=== PATIENT | female | born 1965 | race Two or more races ===

== ENCOUNTER 2016-10-11 22:02 | Observation (INO) | payer SELFPAY ==
[~2016-10-11] VITALS: Ht 165.1 cm; Wt 106.3 kg
[2016-10-11 22:32] LABS: BASO # 0.1 x10^3/uL (0.0-0.2); BASO % 1 % (0-3); EOS % 2 % (0-3); HEMATOCRIT 36.6 % (36.0-47.0); HEMOGLOBIN 12.4 g/dL (12.0-15.5); LYMPH # 4.4 x10^3/uL (1.0-4.8); LYMPH % 43 % (24-48); MEAN CORPUSCULAR HEMOGLOBIN 31 pg (25-35); MEAN CORPUSCULAR HGB CONC 34 g/dL (31-37); MEAN CORPUSCULAR VOLUME 92 fL (79-100); MONO % 7 % (0-9); NEUT % 47 % (31-73); PLATELET COUNT 258 x10^3/uL (140-400); RED BLOOD COUNT 3.97 x10^6/uL (3.50-5.40); RED CELL DISTRIBUTION WIDTH 12.9 % (11.5-14.5); WHITE BLOOD COUNT 10.1 x10^3/uL (4.0-11.0)
[2016-10-11 22:41] LABS: PROTHROMBIN TIME PATIENT 12.1 SEC (11.7-14.0)
[2016-10-11 22:43] LABS: CALCIUM 8.9 mg/dL (8.5-10.1); CREATININE 0.9 mg/dL (0.6-1.0); GFR 66.3; POTASSIUM 3.5 mmol/L (3.5-5.1)
[2016-10-11 22:49] LABS: ALBUMIN 3.5 g/dL (3.4-5.0); DIRECT BILIRUBIN 0.1 mg/dL (0.0-0.2); TOTAL BILIRUBIN 0.2 mg/dL (0.2-1.0); TOTAL PROTEIN 7.5 g/dL (6.4-8.2)
--- NOTE | 2016-10-11 23:21 | RAD ---
EXAM: CT head without contrast HISTORY: numbness in face and arms COMPARISON: None. TECHNIQUE: Computed tomographic images of the head were obtained without contrast. PQRS compliance statement: One or more of the following individualized dose reduction techniques were utilized for this examination: 1. Automated exposure control 2. Adjustment of the mA and/or kV according to patient size 3. Use of iterative reconstruction technique FINDINGS: There is no acute intracranial process identified. Specifically, there are no intracranial blood products, extra-axial fluid collections, mass effect or midline shift. Ventricles and basilar cisterns are maintained. The visualized portions of the orbits, paranasal sinuses and mastoid air cells are unremarkable. No suspicious calvarial lesion is seen. IMPRESSION: No acute intracranial findings. Electronically signed by: Mallory Abdalla MD (10/11/2016 11:17 PM)
[2016-10-11 23:44] LABS: BILIRUBIN,URINE NEGATIVE (NEG); GLUCOSE,URINE NEGATIVE (NEG); NITRITE,URINE NEGATIVE (NEG); PROTEIN,URINE NEGATIVE (NEG-TRACE); UROBILINOGEN,URINE 0.2 mg/dL (0.2 mg/dL)
[2016-10-11 23:49] LABS: BACTERIA,URINE FEW /HPF (0-FEW); RBC,URINE 0 /HPF (0-2); SQUAMOUS EPITHELIAL CELL,UR MOD /LPF
[2016-10-11 23:50] LABS: BARBITURATES NEG (NEG); BENZODIAZEPINES NEG (NEG); CANNABINOIDS NEG (NEG); COCAINE NEG (NEG); METHADONE NEG (NEG); OPIATES NEG (NEG); PHENCYCLIDINE NEG (NEG)
--- NOTE | 2016-10-12 00:14 | PHYS DOC ---
Past Medical History Past Medical History: No Pertinent History Past Surgical History: No Surgical History Alcohol Use: None Drug Use: None Adult General Chief Complaint Chief Complaint: NEURO SYMPTOMS/DEFICITS HPI HPI 51-year-old female presenting to the emergency department Today with left facial numbness and left lower extremity weakness. She reports last known normal on Tuesday which is approximately 3 days from today. She has mild weakness in her left lower leg and reports sensation changes on the left side of her body. She denies slurred speech or confusion. Location brain duration constant. No alleviating or exacerbating factors present. She denies headache or trauma. She denies back pain. She denies fevers chills. She denies vision changes. Review of systems is negative for chest pain shortness of breath abdominal pain nausea or vomiting. All other review of systems is negative unless otherwise noted in history of present illness. ED course: 51-year-old female presenting to the emergency department today with left-sided numbness and weakness. Last known normal [address] and blood work obtained. Workup unremarkable. NIH stroke scale calculated to be 2. 1 point for left lower leg weakness and 1 point for sensory changes. The patient was then admitted for stroke workup, further evaluation workup and care. MRI ordered along with neurology consultation. Patient was outside of the TPA window. Review of Systems Review of Systems SEE ABOVE. Allergies Allergies Allergies Coded Allergies Type Severity Reaction Last Updated Verified No Known Drug Allergies 10/11/16 No Physical Exam Physical Exam Constitutional: Well developed, well nourished, no acute distress, non-toxic appearance. [] HENT: Normocephalic, atraumatic, bilateral external ears normal, oropharynx moist, no oral exudates, nose normal. [] Eyes: PERRLA, EOMI, conjunctiva normal, no discharge. [] Neck: Normal range of motion, no tenderness, supple, no stridor. [] Cardiovascular:Heart rate regular rhythm, no murmur [] Lungs & Thorax: Bilateral breath sounds clear to auscultation [] Abdomen: Bowel sounds normal, soft, no tenderness, no masses, no pulsatile masses. [] Skin: Warm, dry, no erythema, no rash. [] Back: No tenderness, no CVA tenderness. [] Extremities: No tenderness, no cyanosis, no clubbing, ROM intact, no edema. [] Neurologic: Mental status: Awake oriented and alert x3 Cranial nerves: Extraocular movements intact, eyebrows melyssa bilaterally smile symmetric, uvula elevation, shoulder shrug intact, tongue protrusion normal DTRs: 2+ Sensation: Decreased sensation on the left in the face and upper and lower extremity. Strength: 4 out of 5 strength in the lower left extremity otherwise 5 out of 5 strength. Psychologic: Affect normal, judgement normal, mood normal. [] Current Patient Data Vital Signs Vital Signs Date Time Temp Pulse Resp B/P (MAP) Pulse Ox O2 Delivery O2 Flow Rate FiO2 10/11/16 22:10 98.6 68 16 132/75 (94) 98 Room Air 98.6 Lab Values Laboratory Tests Test 10/11/16 22:15 10/11/16 23:37 White Blood Count 10.1 x10^3/uL (4.0-11.0) Red Blood Count 3.97 x10^6/uL (3.50-5.40) Hemoglobin 12.4 g/dL (12.0-15.5) Hematocrit 36.6 % (36.0-47.0) Mean Corpuscular Volume 92 fL (79-100) Mean Corpuscular Hemoglobin 31 pg (25-35) Mean Corpuscular Hemoglobin Concent 34 g/dL (31-37) Red Cell Distribution Width 12.9 % (11.5-14.5) Platelet Count 258 x10^3/uL (140-400) Neutrophils (%) (Auto) 47 % (31-73) Lymphocytes (%) (Auto) 43 % (24-48) Monocytes (%) (Auto) 7 % (0-9) Eosinophils (%) (Auto) 2 % (0-3) Basophils (%) (Auto) 1 % (0-3) Neutrophils # (Auto) 4.8 x10^3uL (1.8-7.7) Lymphocytes # (Auto) 4.4 x10^3/uL (1.0-4.8) Monocytes # (Auto) 0.7 x10^3/uL (0.0-1.1) Eosinophils # (Auto) 0.2 x10^3/uL (0.0-0.7) Basophils # (Auto) 0.1 x10^3/uL (0.0-0.2) Prothrombin Time 12.1 SEC (11.7-14.0) Prothrombin Time INR 1.0 (0.8-1.1) PTT 29 SEC (24-38) Sodium Level 141 mmol/L (136-145) Potassium Level 3.5 mmol/L (3.5-5.1) Chloride Level 104 mmol/L (98-107) Carbon Dioxide Level 29 mmol/L (21-32) Anion Gap 8 (6-14) Blood Urea Nitrogen 26 mg/dL (7-20) H Creatinine 0.9 mg/dL (0.6-1.0) Estimated GFR (Cockcroft-Gault) 66.3 Glucose Level 169 mg/dL (70-99) H Calcium Level 8.9 mg/dL (8.5-10.1) Total Bilirubin 0.2 mg/dL (0.2-1.0) Direct Bilirubin 0.1 mg/dL (0.0-0.2) Aspartate Amino Transferase (AST) 23 U/L (15-37) Alanine Aminotransferase (ALT) 35 U/L (14-59) Alkaline Phosphatase 94 U/L (46-116) Total Protein 7.5 g/dL (6.4-8.2) Albumin 3.5 g/dL (3.4-5.0) Urine Collection Type Unknown Urine Color Yellow Urine Clarity Clear Urine pH 6.0 Urine Specific [place] 1.015 Urine Protein Negative mg/dL (NEG-TRACE) Urine Glucose (UA) Negative mg/dL (NEG) Urine Ketones (Stick) Negative mg/dL (NEG) Urine Blood Negative (NEG) Urine Nitrite Negative (NEG) Urine Bilirubin Negative (NEG) Urine Urobilinogen Dipstick 0.2 mg/dL (0.2 mg/dL) Urine Leukocyte Esterase Small (NEG) Urine RBC 0 /HPF (0-2) Urine WBC 5-10 /HPF (0-4) Urine Squamous Epithelial Cells Mod /LPF Urine Bacteria Few /HPF (0-FEW) Urine Opiates Screen Neg (NEG) Urine Methadone Screen Neg (NEG) Urine Barbiturates Neg (NEG) Urine Phencyclidine Screen Neg (NEG) Urine Amphetamine/Methamphetamine Neg (NEG) Urine Benzodiazepines Screen Neg (NEG) Urine Cocaine Screen Neg (NEG) Urine Cannabinoids Screen Neg (NEG) Urine Ethyl Alcohol Neg (NEG) Laboratory Tests 10/11/16 22:15 Laboratory Tests 10/11/16 22:15 EKG EKG [] Radiology/Procedures Radiology/Procedures [] Course & Med Decision Making Course & Med Decision Making Pertinent Labs and Imaging studies reviewed. (See chart for details) [] Dragon Disclaimer Dragon Disclaimer This electronic medical record was generated, in whole or in part, using a voice recognition dictation system. Departure Departure Impression: Primary Impression: Focal neurological deficit Disposition: ADMITTED INPATIENT Condition: STABLE Referrals: UNKNOWN PCP NAME (PCP) ELISSA KHALIL MD Oct 12, 2016 00:14
[2016-10-12] MEDS ORDERED: ONDANSETRON PF 4 MG/2 ML VIAL. IV PRN ×2 (00:30→12:45)
[2016-10-12] MEDS ORDERED: MORPHINE SULFATE 2 MG/ML DISP.SYRIN. IV PRN ×2 (00:30→12:45)
[2016-10-12] MEDS ORDERED: IV NORMAL SALINE 1000ML BAG 1,000 ML IV ONE (01:00)
[2016-10-12 01:10] VITALS: BP 131/76
--- NOTE | 2016-10-12 06:37 | EKG ---
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
[2016-10-12 07:00] VITALS: BP 128/74
[2016-10-12 10:30] VITALS: BP 130/80
--- NOTE | 2016-10-12 10:38 | PDOC2 ---
NEUROLOGY CONSULT Date of Admission Date of Admission DATE: 10/12/16 TIME: 10:34 Reason for Consult Reason for Consult: Stroke symptoms Referring Physician Referring Physician: Dr. Bullard PCP: Dr. Pichardo Source Source: Caregiver, Chart review, Patient History of Present Illness History of Present Illness The patient is a 51-year-old right-handed female who started noticing some less sided numbness beginning 4 days ago. Symptoms were worse yesterday so she went to the emergency department. She denies any headache, diplopia, dysphagia, dysarthria, history of stroke, seizure, or head injury. She is feeling better today. Past Medical History Cardiovascular: No pertinent hx (She denies hypertension) Endocrine: Diabetes Past Surgical History Past Surgical History: No pertinent history Family History Family History: CAD Social History Social History , works in a [employer], no tobacco or alcohol Current Medications Current Medications Current Medications Ondansetron HCl (Zofran) 4 mg PRN Q8HRS PRN IV NAUSEA/VOMITING; Start 10/12/16 at 00:30; Stop 10/13/16 at 00:29 Morphine Sulfate 2 mg PRN Q2HR PRN IV SEVERE PAIN; Start 10/12/16 at 00:30; Stop 10/13/16 at 00:29 Sodium Chloride 1,000 ml @ 100 mls/hr 1X ONCE IV Last administered on t 00:51; Start 10/12/16 at 01:00; Stop 10/12/16 at 10:59 Active Scripts Active Reported No Known Medications Prior To Admisstion (Info) Each 1 Each Allergies Allergies: Coded Allergies: No Known Drug Allergies (Unverified , 10/11/16) ROS Review of System Negative for fevers, chills, weight loss, shortness of breath, chest pain, indigestion, hematochezia, melena, dysuria. Full 14-point review systems is negative. Physical Exam Physical Examination PHYSICAL EXAMINATION: Vital signs: see above. General appearance is normal and in no acute distress. HEENT: Normocephalic and nontraumatic. Eyes, nose, ears, and throat are unremarkable. Neck is supple. No lymphadenopathy. No bruits are heard over the carotid artery. No crepitus. NEUROLOGICAL EXAMINATION: Mental Status Examination: Alert. Oriented to time, place, and person. Answers questions and follows commends. We spoke in E[place] with the assistance of her son who translates. Pupils are equal round and reactive to light and accommodation. Extraocular movements are intact. Visual field exam shows no defect on the direct confrontation. No motor or sensory deficits on the facial exam. Uvula in the midline and the soft palate elevated symmetrically. No deviation of the tongue to any direction. Gross hearing is normal. Shoulder shrug normal. Muscle tone is normal. Muscle strength is 5. Deep tendon reflexes are 2+ all around. Plantar reflex is with flexion response bilaterally. [id number] test performance is accurate. Tandem walk test is accurate. Alternative movements are accurate. Romberg test is negative. Gait is normal. Sensory exam shows no deficits. No cerebellar signs are elicited. Vitals VITALS Vital Signs Date Time Temp Pulse Resp B/P (MAP) Pulse Ox O2 Delivery O2 Flow Rate FiO2 10/12/16 10:30 97.5 65 18 130/80 (97) 98 Room Air 97.5 Labs Labs Laboratory Tests Test 10/11/16 22:15 10/11/16 23:37 10/12/16 08:05 White Blood Count 10.1 x10^3/uL (4.0-11.0) Red Blood Count 3.97 x10^6/uL (3.50-5.40) Hemoglobin 12.4 g/dL (12.0-15.5) Hematocrit 36.6 % (36.0-47.0) Mean Corpuscular Volume 92 fL (79-100) Mean Corpuscular Hemoglobin 31 pg (25-35) Mean Corpuscular Hemoglobin Concent 34 g/dL (31-37) Red Cell Distribution Width 12.9 % (11.5-14.5) Platelet Count 258 x10^3/uL (140-400) Neutrophils (%) (Auto) 47 % (31-73) Lymphocytes (%) (Auto) 43 % (24-48) Monocytes (%) (Auto) 7 % (0-9) Eosinophils (%) (Auto) 2 % (0-3) Basophils (%) (Auto) 1 % (0-3) Neutrophils # (Auto) 4.8 x10^3uL (1.8-7.7) Lymphocytes # (Auto) 4.4 x10^3/uL (1.0-4.8) Monocytes # (Auto) 0.7 x10^3/uL (0.0-1.1) Eosinophils # (Auto) 0.2 x10^3/uL (0.0-0.7) Basophils # (Auto) 0.1 x10^3/uL (0.0-0.2) Prothrombin Time 12.1 SEC (11.7-14.0) Prothromb Time International Ratio 1.0 (0.8-1.1) Activated Partial Thromboplast Time 29 SEC (24-38) Sodium Level 141 mmol/L (136-145) Potassium Level 3.5 mmol/L (3.5-5.1) Chloride Level 104 mmol/L (98-107) Carbon Dioxide Level 29 mmol/L (21-32) Anion Gap 8 (6-14) Blood Urea Nitrogen 26 mg/dL (7-20) Creatinine 0.9 mg/dL (0.6-1.0) Estimated GFR (Cockcroft-Gault) 66.3 Glucose Level 169 mg/dL (70-99) Calcium Level 8.9 mg/dL (8.5-10.1) Total Bilirubin 0.2 mg/dL (0.2-1.0) Direct Bilirubin 0.1 mg/dL (0.0-0.2) Aspartate Amino Transf (AST/SGOT) 23 U/L (15-37) Alanine Aminotransferase (ALT/SGPT) 35 U/L (14-59) Alkaline Phosphatase 94 U/L (46-116) Total Protein 7.5 g/dL (6.4-8.2) Albumin 3.5 g/dL (3.4-5.0) Urine Collection Type Unknown Urine Color Yellow Urine Clarity Clear Urine pH 6.0 Urine Specific [place] 1.015 Urine Protein Negative mg/dL (NEG-TRACE) Urine Glucose (UA) Negative mg/dL (NEG) Urine Ketones (Stick) Negative mg/dL (NEG) Urine Blood Negative (NEG) Urine Nitrite Negative (NEG) Urine Bilirubin Negative (NEG) Urine Urobilinogen Dipstick 0.2 mg/dL (0.2 mg/dL) Urine Leukocyte Esterase Small (NEG) Urine RBC 0 /HPF (0-2) Urine WBC 5-10 /HPF (0-4) Urine Squamous Epithelial Cells Mod /LPF Urine Bacteria Few /HPF (0-FEW) Urine Opiates Screen Neg (NEG) Urine Methadone Screen Neg (NEG) Urine Barbiturates Neg (NEG) Urine Phencyclidine Screen Neg (NEG) Urine Amphetamine/Methamphetamine Neg (NEG) Urine Benzodiazepines Screen Neg (NEG) Urine Cocaine Screen Neg (NEG) Urine Cannabinoids Screen Neg (NEG) Urine Ethyl Alcohol Neg (NEG) Glucose (Fingerstick) 156 mg/dL (70-99) Laboratory Tests Test 10/11/16 22:15 10/11/16 23:37 10/12/16 08:05 White Blood Count 10.1 x10^3/uL (4.0-11.0) Red Blood Count 3.97 x10^6/uL (3.50-5.40) Hemoglobin 12.4 g/dL (12.0-15.5) Hematocrit 36.6 % (36.0-47.0) Mean Corpuscular Volume 92 fL (79-100) Mean Corpuscular Hemoglobin 31 pg (25-35) Mean Corpuscular Hemoglobin Concent 34 g/dL (31-37) Red Cell Distribution Width 12.9 % (11.5-14.5) Platelet Count 258 x10^3/uL (140-400) Neutrophils (%) (Auto) 47 % (31-73) Lymphocytes (%) (Auto) 43 % (24-48) Monocytes (%) (Auto) 7 % (0-9) Eosinophils (%) (Auto) 2 % (0-3) Basophils (%) (Auto) 1 % (0-3) Neutrophils # (Auto) 4.8 x10^3uL (1.8-7.7) Lymphocytes # (Auto) 4.4 x10^3/uL (1.0-4.8) Monocytes # (Auto) 0.7 x10^3/uL (0.0-1.1) Eosinophils # (Auto) 0.2 x10^3/uL (0.0-0.7) Basophils # (Auto) 0.1 x10^3/uL (0.0-0.2) Prothrombin Time 12.1 SEC (11.7-14.0) Prothromb Time International Ratio 1.0 (0.8-1.1) Activated Partial Thromboplast Time 29 SEC (24-38) Sodium Level 141 mmol/L (136-145) Potassium Level 3.5 mmol/L (3.5-5.1) Chloride Level 104 mmol/L (98-107) Carbon Dioxide Level 29 mmol/L (21-32) Anion Gap 8 (6-14) Blood Urea Nitrogen 26 mg/dL (7-20) Creatinine 0.9 mg/dL (0.6-1.0) Estimated GFR (Cockcroft-Gault) 66.3 Glucose Level 169 mg/dL (70-99) Calcium Level 8.9 mg/dL (8.5-10.1) Total Bilirubin 0.2 mg/dL (0.2-1.0) Direct Bilirubin 0.1 mg/dL (0.0-0.2) Aspartate Amino Transf (AST/SGOT) 23 U/L (15-37) Alanine Aminotransferase (ALT/SGPT) 35 U/L (14-59) Alkaline Phosphatase 94 U/L (46-116) Total Protein 7.5 g/dL (6.4-8.2) Albumin 3.5 g/dL (3.4-5.0) Urine Collection Type Unknown Urine Color Yellow Urine Clarity Clear Urine pH 6.0 Urine Specific [place] 1.015 Urine Protein Negative mg/dL (NEG-TRACE) Urine Glucose (UA) Negative mg/dL (NEG) Urine Ketones (Stick) Negative mg/dL (NEG) Urine Blood Negative (NEG) Urine Nitrite Negative (NEG) Urine Bilirubin Negative (NEG) Urine Urobilinogen Dipstick 0.2 mg/dL (0.2 mg/dL) Urine Leukocyte Esterase Small (NEG) Urine RBC 0 /HPF (0-2) Urine WBC 5-10 /HPF (0-4) Urine Squamous Epithelial Cells Mod /LPF Urine Bacteria Few /HPF (0-FEW) Urine Opiates Screen Neg (NEG) Urine Methadone Screen Neg (NEG) Urine Barbiturates Neg (NEG) Urine Phencyclidine Screen Neg (NEG) Urine Amphetamine/Methamphetamine Neg (NEG) Urine Benzodiazepines Screen Neg (NEG) Urine Cocaine Screen Neg (NEG) Urine Cannabinoids Screen Neg (NEG) Urine Ethyl Alcohol Neg (NEG) Glucose (Fingerstick) 156 mg/dL (70-99) Images Images FINDINGS: There is no acute intracranial process identified. Specifically, there are no intracranial blood products, extra-axial fluid collections, mass effect or midline shift. Ventricles and basilar cisterns are maintained. The visualized portions of the orbits, paranasal sinuses and mastoid air cells are unremarkable. No suspicious calvarial lesion is seen. IMPRESSION: No acute intracranial findings. Assessment/Plan Assessment/Plan Impression: Stroke symptoms possibly referable to a right thalamic lacunar infarct, but examination is normal. Recommendations: MRI brain Carotid Doppler studies Echocardiogram Daily aspirin Check lipids tomorrow morning if she is still here, otherwise I told her to have her primary physician check lipids and start medication if abnormal Control diabetes Rehabilitation screening Aim for discharge later today of tests are negative She was not a candidate for tissue plasminogen activator as she presented well outside the window. Thank you for letting me help with the patient's care. BHANU BASS MD Oct 12, 2016 10:38
--- NOTE | 2016-10-12 10:45 | RAD ---
Indication: CVA. Grayscale, color-flow and duplex Doppler evaluation of bilateral carotid systems was performed. No significant plaque is identified in either carotid system. The velocities are normal bilaterally. No velocity elevation or stenosis is identified. Both vertebral arteries show antegrade flow. Peak CCA velocity on the right is 71 cm/s and on the left 76 cm/s. Peak ICA velocity on the right is 59 cm/s and on the left 83 cm/s. The ICA to CCA ratio on the right is 0.8 and left 1.1. Impression: No evidence of a hemodynamically significant stenosis.
--- NOTE | 2016-10-12 10:47 | RAD ---
MRI of the brain without contrast 10/12/2016 Clinical History: Left-sided numbness for one day. Technique: Unenhanced T1-weighted sagittal and axial, T2-weighted axial and coronal and FLAIR, gradient echo and diffusion-weighted axial images of the brain were obtained. Findings: Comparison is made to a CT scan of the head dated 10/11/2016. The ventricles and sulci are within normal limits in size and configuration. Patchy and several small scattered areas of increased signal intensity are seen within the periventricular and subcortical white matter of both cerebral hemispheres on the FLAIR and T2-weighted images consistent most likely with areas of very mild small vessel ischemic disease. No acute parenchymal abnormality is seen. No extra-axial fluid collection is seen. There is no MRI evidence of acute ischemia/infarction. Mild mucosal thickening is seen throughout the paranasal sinuses. There is minimal left mastoid effusion. Normal flow voids are seen within the major vascular structures surrounding the brain parenchyma. Impression: No acute parenchymal abnormality is seen. Electronically signed by: Geovanni Oconnor MD (10/12/2016 10:44 AM)
--- NOTE | 2016-10-12 12:37 | PDOC1 ---
History and Physical Date of Admission Date of Admission 10/12/16 Identification/Chief Complaint Chief Complaint left side numbness Problems: Source Source: Chart review, Patient History of Present Illness History of Present Illness 51-year-old female presenting to the emergency department overnight with left facial numbness and left lower extremity weakness. pt is latvian speaking, most history from ERP and nURses. Pt said the left facial and left leg numbness started on tuesday, with possible mild weakness, no speech or swallow problem, now all resolved. She denies headache or trauma. She denies back pain. She denies fevers chills. She denies vision changes. head CT neg Past Medical History Cardiovascular: No pertinent hx (She denies hypertension) Endocrine: Diabetes Past Surgical History Past Surgical History: No pertinent history Family History Family History: Hypertension Social History Smoke: No ALCOHOL: none Drugs: None Current Problem List Problem List Problems Medical Problems: (1) Focal neurological deficit Status: Acute Current Medications Current Medications Current Medications Medications (Trade) Dose Ordered Sig/Kai Start Time Stop Time Status Last Admin Dose Admin Morphine Sulfate 2 mg PRN Q2HR PRN 10/12/16 00:30 10/13/16 00:29 Ondansetron HCl (Zofran) 4 mg PRN Q8HRS PRN 10/12/16 00:30 10/13/16 00:29 Sodium Chloride 1,000 ml @ 100 mls/hr 1X ONCE 10/12/16 01:00 10/12/16 10:59 DC 10/12/16 00:51 100 MLS/HR Allergies Allergies Allergies Coded Allergies Type Severity Reaction Last Updated Verified No Known Drug Allergies 10/11/16 No ROS Review of System CONSTITUTIONAL: No fever or chills EYES: No recent changes SKIN: No rash or itching CARDIOVASCULAR: No chest pain, syncope, palpitations, or edema RESPIRATORY: No SOB or cough GASTROINTESTINAL: No nausea, vomiting or abdominal pain NEUROLOGICAL: No headaches or weakness ENDOCRINE: No cold or heat intolerance GENITOURINARY: No urgency or frequency of urination MUSCULOSKELETAL: No back pain or joint pain LYMPHATICS: No enlarged lymph nodes PSYCHIATRIC: No anxiety or depression Physical Exam Physical Exam GEN.: No apparent distress. Alert and oriented. HEENT: Head is normocephalic, atraumatic NECK: Supple. LUNGS: Clear to auscultation. HEART: RRR, S1, S2 present. Peripheral pulses intact ABDOMEN: Soft, nontender. Positive bowel sounds. EXTREMITIES: Without any cyanosis. NEUROLOGIC: Normal speech, normal tone PSYCHIATRIC: Normal affect, normal mood. SKIN: No ulcerations Vitals Vitals Vital Signs Date Time Temp Pulse Resp B/P (MAP) Pulse Ox O2 Delivery O2 Flow Rate FiO2 10/12/16 10:30 97.5 65 18 130/80 (97) 98 Room Air 97.5 Labs Labs Laboratory Tests Test 10/11/16 22:15 10/11/16 23:37 10/12/16 08:05 10/12/16 11:50 White Blood Count 10.1 x10^3/uL (4.0-11.0) Red Blood Count 3.97 x10^6/uL (3.50-5.40) Hemoglobin 12.4 g/dL (12.0-15.5) Hematocrit 36.6 % (36.0-47.0) Mean Corpuscular Volume 92 fL (79-100) Mean Corpuscular Hemoglobin 31 pg (25-35) Mean Corpuscular Hemoglobin Concent 34 g/dL (31-37) Red Cell Distribution Width 12.9 % (11.5-14.5) Platelet Count 258 x10^3/uL (140-400) Neutrophils (%) (Auto) 47 % (31-73) Lymphocytes (%) (Auto) 43 % (24-48) Monocytes (%) (Auto) 7 % (0-9) Eosinophils (%) (Auto) 2 % (0-3) Basophils (%) (Auto) 1 % (0-3) Neutrophils # (Auto) 4.8 x10^3uL (1.8-7.7) Lymphocytes # (Auto) 4.4 x10^3/uL (1.0-4.8) Monocytes # (Auto) 0.7 x10^3/uL (0.0-1.1) Eosinophils # (Auto) 0.2 x10^3/uL (0.0-0.7) Basophils # (Auto) 0.1 x10^3/uL (0.0-0.2) Prothrombin Time 12.1 SEC (11.7-14.0) Prothromb Time International Ratio 1.0 (0.8-1.1) Activated Partial Thromboplast Time 29 SEC (24-38) Sodium Level 141 mmol/L (136-145) Potassium Level 3.5 mmol/L (3.5-5.1) Chloride Level 104 mmol/L (98-107) Carbon Dioxide Level 29 mmol/L (21-32) Anion Gap 8 (6-14) Blood Urea Nitrogen 26 mg/dL (7-20) Creatinine 0.9 mg/dL (0.6-1.0) Estimated GFR (Cockcroft-Gault) 66.3 Glucose Level 169 mg/dL (70-99) Calcium Level 8.9 mg/dL (8.5-10.1) Total Bilirubin 0.2 mg/dL (0.2-1.0) Direct Bilirubin 0.1 mg/dL (0.0-0.2) Aspartate Amino Transf (AST/SGOT) 23 U/L (15-37) Alanine Aminotransferase (ALT/SGPT) 35 U/L (14-59) Alkaline Phosphatase 94 U/L (46-116) Total Protein 7.5 g/dL (6.4-8.2) Albumin 3.5 g/dL (3.4-5.0) Urine Collection Type Unknown Urine Color Yellow Urine Clarity Clear Urine pH 6.0 Urine Specific [place] 1.015 Urine Protein Negative mg/dL (NEG-TRACE) Urine Glucose (UA) Negative mg/dL (NEG) Urine Ketones (Stick) Negative mg/dL (NEG) Urine Blood Negative (NEG) Urine Nitrite Negative (NEG) Urine Bilirubin Negative (NEG) Urine Urobilinogen Dipstick 0.2 mg/dL (0.2 mg/dL) Urine Leukocyte Esterase Small (NEG) Urine RBC 0 /HPF (0-2) Urine WBC 5-10 /HPF (0-4) Urine Squamous Epithelial Cells Mod /LPF Urine Bacteria Few /HPF (0-FEW) Urine Opiates Screen Neg (NEG) Urine Methadone Screen Neg (NEG) Urine Barbiturates Neg (NEG) Urine Phencyclidine Screen Neg (NEG) Urine Amphetamine/Methamphetamine Neg (NEG) Urine Benzodiazepines Screen Neg (NEG) Urine Cocaine Screen Neg (NEG) Urine Cannabinoids Screen Neg (NEG) Urine Ethyl Alcohol Neg (NEG) Glucose (Fingerstick) 156 mg/dL (70-99) 134 mg/dL (70-99) Laboratory Tests Test 10/11/16 22:15 10/11/16 23:37 10/12/16 08:05 10/12/16 11:50 White Blood Count 10.1 x10^3/uL (4.0-11.0) Red Blood Count 3.97 x10^6/uL (3.50-5.40) Hemoglobin 12.4 g/dL (12.0-15.5) Hematocrit 36.6 % (36.0-47.0) Mean Corpuscular Volume 92 fL (79-100) Mean Corpuscular Hemoglobin 31 pg (25-35) Mean Corpuscular Hemoglobin Concent 34 g/dL (31-37) Red Cell Distribution Width 12.9 % (11.5-14.5) Platelet Count 258 x10^3/uL (140-400) Neutrophils (%) (Auto) 47 % (31-73) Lymphocytes (%) (Auto) 43 % (24-48) Monocytes (%) (Auto) 7 % (0-9) Eosinophils (%) (Auto) 2 % (0-3) Basophils (%) (Auto) 1 % (0-3) Neutrophils # (Auto) 4.8 x10^3uL (1.8-7.7) Lymphocytes # (Auto) 4.4 x10^3/uL (1.0-4.8) Monocytes # (Auto) 0.7 x10^3/uL (0.0-1.1) Eosinophils # (Auto) 0.2 x10^3/uL (0.0-0.7) Basophils # (Auto) 0.1 x10^3/uL (0.0-0.2) Prothrombin Time 12.1 SEC (11.7-14.0) Prothromb Time International Ratio 1.0 (0.8-1.1) Activated Partial Thromboplast Time 29 SEC (24-38) Sodium Level 141 mmol/L (136-145) Potassium Level 3.5 mmol/L (3.5-5.1) Chloride Level 104 mmol/L (98-107) Carbon Dioxide Level 29 mmol/L (21-32) Anion Gap 8 (6-14) Blood Urea Nitrogen 26 mg/dL (7-20) Creatinine 0.9 mg/dL (0.6-1.0) Estimated GFR (Cockcroft-Gault) 66.3 Glucose Level 169 mg/dL (70-99) Calcium Level 8.9 mg/dL (8.5-10.1) Total Bilirubin 0.2 mg/dL (0.2-1.0) Direct Bilirubin 0.1 mg/dL (0.0-0.2) Aspartate Amino Transf (AST/SGOT) 23 U/L (15-37) Alanine Aminotransferase (ALT/SGPT) 35 U/L (14-59) Alkaline Phosphatase 94 U/L (46-116) Total Protein 7.5 g/dL (6.4-8.2) Albumin 3.5 g/dL (3.4-5.0) Urine Collection Type Unknown Urine Color Yellow Urine Clarity Clear Urine pH 6.0 Urine Specific [place] 1.015 Urine Protein Negative mg/dL (NEG-TRACE) Urine Glucose (UA) Negative mg/dL (NEG) Urine Ketones (Stick) Negative mg/dL (NEG) Urine Blood Negative (NEG) Urine Nitrite Negative (NEG) Urine Bilirubin Negative (NEG) Urine Urobilinogen Dipstick 0.2 mg/dL (0.2 mg/dL) Urine Leukocyte Esterase Small (NEG) Urine RBC 0 /HPF (0-2) Urine WBC 5-10 /HPF (0-4) Urine Squamous Epithelial Cells Mod /LPF Urine Bacteria Few /HPF (0-FEW) Urine Opiates Screen Neg (NEG) Urine Methadone Screen Neg (NEG) Urine Barbiturates Neg (NEG) Urine Phencyclidine Screen Neg (NEG) Urine Amphetamine/Methamphetamine Neg (NEG) Urine Benzodiazepines Screen Neg (NEG) Urine Cocaine Screen Neg (NEG) Urine Cannabinoids Screen Neg (NEG) Urine Ethyl Alcohol Neg (NEG) Glucose (Fingerstick) 156 mg/dL (70-99) 134 mg/dL (70-99) VTE Prophylaxis Ordered VTE Prophylaxis Devices: Yes VTE Pharmacological Prophylaxi: Yes Assessment/Plan Assessment/Plan 1. left side numbness, 2/2 TIA likely plan: fu with neuro mri brain, carotid US neg echo pending check hba1c, lipid panel, vitb12 dvt ppx asa daily dc RUBEN Mckeon MD Oct 12, 2016 12:36
[2016-10-12] MEDS ORDERED: traMADol 50 MG TABLET PO PRN (12:45)
[2016-10-12] MEDS ORDERED: DOCUSATE SODIUM 100 MG CAPSULE. PO PRN (12:45)
[2016-10-12] MEDS ORDERED: hydrALAZINE 20 MG/ML VIAL. IVP PRN (12:45)
[2016-10-12] MEDS ORDERED: ACETAMINOPHEN 325 MG TABLET. PO PRN (12:45)
[2016-10-12] MEDS ORDERED: ASPIRIN 325 MG TABLET PO SCH (13:00)
[2016-10-12] MEDS ORDERED: ENOXAPARIN 40 MG/0.4 ML SYRINGE. SQ SCH (13:00)
[2016-10-12] MEDS ORDERED: ASPIRIN CHEWABLE 81 MG TABLET. PO SCH (14:00)
[2016-10-12 15:00] VITALS: BP 135/89
[2016-10-12 19:15] VITALS: BP 144/72
--- NOTE | 2016-10-12 21:13 | CARD ---
APPROVED REPORT EXAM: Two-dimensional and M-mode echocardiogram with Doppler and color Doppler. INDICATION CVA/TIA Echo Enhancing Agent Agent/Amount Used: Agitated Saline 8mL 2D DIMENSIONS RVDd2.5 (2.9-3.5cm)Left Atrium(2D)3.3 (1.6-4.0cm) IVSd1.1 (0.7-1.1cm)Aortic Root(2D)2.8 (2.0-3.7cm) LVDd4.7 (3.9-5.9cm)LVOT Diameter2.1 (1.8-2.4cm) PWd1.0 (0.7-1.1cm)LVDs3.0 (2.5-4.0cm) FS (%) 30.0 %SV67.6 ml LVEF(%)60.0 (>50%) Aortic Valve AoV Peak Estiven.125.5cm/sAoV VTI28.9cm AO Peak GR.6.3mmHgLVOT Peak Estiven.104.3cm/s AO Mean GR.4mmHgAVA (VMAX)2.82cm2 TADEO (VTI)3.00cm2 Mitral Valve MV E Tyivenrv12.3cm/sMV DECEL [id number] MV A Jboqhsat12.9cm/sE/A Ratio1.3 Tricuspid Valve TR P. Oxtbqmxt263au/sRAP YIVHAERE1hqAq TR Peak Gr.[id number] Pulmonary Vein S1 Jsqshftr14.0cm/sD2 Ymdxnzao69.5cm/s PVa [id number] LEFT VENTRICLE The left ventricle is normal size. There is normal left ventricular wall thickness. The left ventricu lar systolic function is normal The Ejection Fraction is 55-60%. There is normal LV segmental wall mo tion. n. RIGHT VENTRICLE The right ventricle is normal size. The right ventricular systolic function is normal. ATRIA The left atrium size is normal. The right atrium size is normal. The interatrial septum is intact wit h no evidence for an atrial septal defect or patent foramen ovale as noted on 2-D or Doppler imaging. Injection of bubbles documented no interatrial shunt. AORTIC VALVE The aortic valve is normal in structure and function. Doppler and Color Flow revealed trace aortic re gurgitation. There is no significant aortic valvular stenosis. MITRAL VALVE The mitral valve is normal in structure and function. There is no evidence of mitral valve prolapse. There is no mitral valve stenosis. Doppler and Color-flow revealed trace mitral regurgitation. TRICUSPID VALVE The tricuspid valve is normal in structure and function. Doppler and Color Flow revealed trace tricus pid regurgitation. There is mild pulmonary hypertension. The PA pressure was estimated at 31 mmHg. Th ere is no tricuspid valve stenosis. PULMONIC VALVE The pulmonary valve is normal in structure and function. Doppler and Color Flow revealed trace pulmon ic valvular regurgitation. There is no pulmonic valvular stenosis. GREAT VESSELS The aortic root is normal in size. The ascending aorta is normal in size. The IVC is normal in size a nd collapses >50% with inspiration. PERICARDIAL EFFUSION There is no evidence of significant pericardial effusion. Critical Notification Critical Value: No <Conclusion> The left ventricle is normal size. There is normal left ventricular wall thickness. The left ventricular systolic function is normal The Ejection Fraction is 55-60%. The diastolic function is normal. There is no mitral valve stenosis. and a trace mitral regurgitation. The left atrium is of a normal size. There is no aortic stenosis and a trace aortic regurgitation The righrv ventricle is of a normal size with normal systolic function. Doppler and Color Flow revealed trace tricuspid regurgitation. There is mild pulmonary hypertension. The PA pressure was estimated at 31 mmHg. The pulmonic valve is normal. Bubble saline study with agitated saline revealed no right to left shunt
[2016-10-12 23:20] VITALS: BP 125/67
[2016-10-13 03:20] VITALS: BP 120/72
[2016-10-13 06:06] LABS: BASO % 0 % (0-3); EOS % 2 % (0-3); HEMATOCRIT 37.8 % (36.0-47.0); HEMOGLOBIN 12.8 g/dL (12.0-15.5); LYMPH % 43 % (24-48); MEAN CORPUSCULAR HEMOGLOBIN 31 pg (25-35); MEAN CORPUSCULAR HGB CONC 34 g/dL (31-37); MEAN CORPUSCULAR VOLUME 92 fL (79-100); MONO % 7 % (0-9); NEUT % 48 % (31-73); PLATELET COUNT 248 x10^3/uL (140-400); RED CELL DISTRIBUTION WIDTH 12.8 % (11.5-14.5)
[2016-10-13 06:26] LABS: CALCIUM 9.4 mg/dL (8.5-10.1); CREATININE 0.6 mg/dL (0.6-1.0); GFR 105.8; POTASSIUM 3.6 mmol/L (3.5-5.1)
[2016-10-13 07:10] VITALS: BP 142/80
[2016-10-13 10:52] VITALS: BP 99/58
[2016-10-13] MEDS ORDERED: ASPI-630 PO (11:19)
[2016-10-13] MEDS ORDERED: ATOR40TA59 PO (11:19)
--- NOTE | 2016-10-13 11:51 | PDOC ---
PROGRESS NOTES Assessment Problems Medical Problems: (1) Focal neurological deficit Status: Acute The patient had several days of symptoms and had a negative workout for stroke, so it is difficult to call this a TIA. Consider nonorganic cause. Plan Okay for discharge Discuss lipids with primary physician, I am holding off on statin Daily aspirin Follow-up with me as needed. Subjective No complaints Objective Vital Signs Date Time Temp Pulse Resp B/P (MAP) Pulse Ox O2 Delivery O2 Flow Rate FiO2 10/13/16 11:09 97 10/13/16 10:52 97.6 63 20 99/58 (72) Room Air 97.6 Intake and Output 10/13/16 07:00 Intake Total 1300 ml Output Total 2 ml Balance 1298 ml Intake Oral 1300 ml Output Urine Total 2 ml # Voids 3 PHYSICAL EXAM Alert. Oriented to time, place and person. PERRL. EOMI. CN: no focal findings. Muscle tone: normal. Muscle strength: 5/5 DTR: 2+ Plantar reflex: flexor Gait: normal. Sensory exam: no abnormal findings. No cerebellar signs elicited. Review of Relevant I have reviewed the following items emanuel (where applicable) has been applied. Labs Laboratory Tests Test 10/11/16 22:15 10/11/16 23:37 10/12/16 08:05 10/12/16 11:50 White Blood Count 10.1 x10^3/uL (4.0-11.0) Red Blood Count 3.97 x10^6/uL (3.50-5.40) Hemoglobin 12.4 g/dL (12.0-15.5) Hematocrit 36.6 % (36.0-47.0) Mean Corpuscular Volume 92 fL (79-100) Mean Corpuscular Hemoglobin 31 pg (25-35) Mean Corpuscular Hemoglobin Concent 34 g/dL (31-37) Red Cell Distribution Width 12.9 % (11.5-14.5) Platelet Count 258 x10^3/uL (140-400) Neutrophils (%) (Auto) 47 % (31-73) Lymphocytes (%) (Auto) 43 % (24-48) Monocytes (%) (Auto) 7 % (0-9) Eosinophils (%) (Auto) 2 % (0-3) Basophils (%) (Auto) 1 % (0-3) Neutrophils # (Auto) 4.8 x10^3uL (1.8-7.7) Lymphocytes # (Auto) 4.4 x10^3/uL (1.0-4.8) Monocytes # (Auto) 0.7 x10^3/uL (0.0-1.1) Eosinophils # (Auto) 0.2 x10^3/uL (0.0-0.7) Basophils # (Auto) 0.1 x10^3/uL (0.0-0.2) Prothrombin Time 12.1 SEC (11.7-14.0) Prothromb Time International Ratio 1.0 (0.8-1.1) Activated Partial Thromboplast Time 29 SEC (24-38) Sodium Level 141 mmol/L (136-145) Potassium Level 3.5 mmol/L (3.5-5.1) Chloride Level 104 mmol/L (98-107) Carbon Dioxide Level 29 mmol/L (21-32) Anion Gap 8 (6-14) Blood Urea Nitrogen 26 mg/dL (7-20) Creatinine 0.9 mg/dL (0.6-1.0) Estimated GFR (Cockcroft-Gault) 66.3 Glucose Level 169 mg/dL (70-99) Calcium Level 8.9 mg/dL (8.5-10.1) Total Bilirubin 0.2 mg/dL (0.2-1.0) Direct Bilirubin 0.1 mg/dL (0.0-0.2) Aspartate Amino Transf (AST/SGOT) 23 U/L (15-37) Alanine Aminotransferase (ALT/SGPT) 35 U/L (14-59) Alkaline Phosphatase 94 U/L (46-116) Total Protein 7.5 g/dL (6.4-8.2) Albumin 3.5 g/dL (3.4-5.0) Urine Collection Type Unknown Urine Color Yellow Urine Clarity Clear Urine pH 6.0 Urine Specific [place] 1.015 Urine Protein Negative mg/dL (NEG-TRACE) Urine Glucose (UA) Negative mg/dL (NEG) Urine Ketones (Stick) Negative mg/dL (NEG) Urine Blood Negative (NEG) Urine Nitrite Negative (NEG) Urine Bilirubin Negative (NEG) Urine Urobilinogen Dipstick 0.2 mg/dL (0.2 mg/dL) Urine Leukocyte Esterase Small (NEG) Urine RBC 0 /HPF (0-2) Urine WBC 5-10 /HPF (0-4) Urine Squamous Epithelial Cells Mod /LPF Urine Bacteria Few /HPF (0-FEW) Urine Opiates Screen Neg (NEG) Urine Methadone Screen Neg (NEG) Urine Barbiturates Neg (NEG) Urine Phencyclidine Screen Neg (NEG) Urine Amphetamine/Methamphetamine Neg (NEG) Urine Benzodiazepines Screen Neg (NEG) Urine Cocaine Screen Neg (NEG) Urine Cannabinoids Screen Neg (NEG) Urine Ethyl Alcohol Neg (NEG) Glucose (Fingerstick) 156 mg/dL (70-99) 134 mg/dL (70-99) Test 10/12/16 16:17 10/12/16 21:20 10/13/16 05:10 10/13/16 05:15 Glucose (Fingerstick) 130 mg/dL (70-99) 146 mg/dL (70-99) White Blood Count 7.0 x10^3/uL (4.0-11.0) Red Blood Count 4.10 x10^6/uL (3.50-5.40) Hemoglobin 12.8 g/dL (12.0-15.5) Hematocrit 37.8 % (36.0-47.0) Mean Corpuscular Volume 92 fL (79-100) Mean Corpuscular Hemoglobin 31 pg (25-35) Mean Corpuscular Hemoglobin Concent 34 g/dL (31-37) Red Cell Distribution Width 12.8 % (11.5-14.5) Platelet Count 248 x10^3/uL (140-400) Neutrophils (%) (Auto) 48 % (31-73) Lymphocytes (%) (Auto) 43 % (24-48) Monocytes (%) (Auto) 7 % (0-9) Eosinophils (%) (Auto) 2 % (0-3) Basophils (%) (Auto) 0 % (0-3) Neutrophils # (Auto) 3.4 x10^3uL (1.8-7.7) Lymphocytes # (Auto) 3.0 x10^3/uL (1.0-4.8) Monocytes # (Auto) 0.5 x10^3/uL (0.0-1.1) Eosinophils # (Auto) 0.2 x10^3/uL (0.0-0.7) Basophils # (Auto) 0.0 x10^3/uL (0.0-0.2) Sodium Level 143 mmol/L (136-145) Potassium Level 3.6 mmol/L (3.5-5.1) Chloride Level 106 mmol/L (98-107) Carbon Dioxide Level 29 mmol/L (21-32) Anion Gap 8 (6-14) Blood Urea Nitrogen 17 mg/dL (7-20) Creatinine 0.6 mg/dL (0.6-1.0) Estimated GFR (Cockcroft-Gault) 105.8 Glucose Level 148 mg/dL (70-99) Calcium Level 9.4 mg/dL (8.5-10.1) Triglycerides Level 160 mg/dL (0-150) Cholesterol Level 223 mg/dL (0-200) LDL Cholesterol, Calculated 146 mg/dL (0-100) VLDL Cholesterol, Calculated 32 mg/dL (0-40) Non-HDL Cholesterol Calculated 178 mg/dL (0-129) HDL Cholesterol 45 mg/dL (40-60) Cholesterol/HDL Ratio 5.0 Vitamin B12 Level 1159 pg/mL (247-911) Test 10/13/16 07:26 Glucose (Fingerstick) 163 mg/dL (70-99) Laboratory Tests Test 10/12/16 11:50 10/12/16 16:17 10/12/16 21:20 10/13/16 05:10 Glucose (Fingerstick) 134 mg/dL (70-99) 130 mg/dL (70-99) 146 mg/dL (70-99) White Blood Count 7.0 x10^3/uL (4.0-11.0) Red Blood Count 4.10 x10^6/uL (3.50-5.40) Hemoglobin 12.8 g/dL (12.0-15.5) Hematocrit 37.8 % (36.0-47.0) Mean Corpuscular Volume 92 fL (79-100) Mean Corpuscular Hemoglobin 31 pg (25-35) Mean Corpuscular Hemoglobin Concent 34 g/dL (31-37) Red Cell Distribution Width 12.8 % (11.5-14.5) Platelet Count 248 x10^3/uL (140-400) Neutrophils (%) (Auto) 48 % (31-73) Lymphocytes (%) (Auto) 43 % (24-48) Monocytes (%) (Auto) 7 % (0-9) Eosinophils (%) (Auto) 2 % (0-3) Basophils (%) (Auto) 0 % (0-3) Neutrophils # (Auto) 3.4 x10^3uL (1.8-7.7) Lymphocytes # (Auto) 3.0 x10^3/uL (1.0-4.8) Monocytes # (Auto) 0.5 x10^3/uL (0.0-1.1) Eosinophils # (Auto) 0.2 x10^3/uL (0.0-0.7) Basophils # (Auto) 0.0 x10^3/uL (0.0-0.2) Test 10/13/16 05:15 10/13/16 07:26 Sodium Level 143 mmol/L (136-145) Potassium Level 3.6 mmol/L (3.5-5.1) Chloride Level 106 mmol/L (98-107) Carbon Dioxide Level 29 mmol/L (21-32) Anion Gap 8 (6-14) Blood Urea Nitrogen 17 mg/dL (7-20) Creatinine 0.6 mg/dL (0.6-1.0) Estimated GFR (Cockcroft-Gault) 105.8 Glucose Level 148 mg/dL (70-99) Calcium Level 9.4 mg/dL (8.5-10.1) Triglycerides Level 160 mg/dL (0-150) Cholesterol Level 223 mg/dL (0-200) LDL Cholesterol, Calculated 146 mg/dL (0-100) VLDL Cholesterol, Calculated 32 mg/dL (0-40) Non-HDL Cholesterol Calculated 178 mg/dL (0-129) HDL Cholesterol 45 mg/dL (40-60) Cholesterol/HDL Ratio 5.0 Vitamin B12 Level 1159 pg/mL (247-911) Glucose (Fingerstick) 163 mg/dL (70-99) Medications Current Medications Ondansetron HCl (Zofran) 4 mg PRN Q8HRS PRN IV NAUSEA/VOMITING; Start 10/12/16 at 00:30; Stop 10/13/16 at 00:29; Status DC Morphine Sulfate 2 mg PRN Q2HR PRN IV SEVERE PAIN; Start 10/12/16 at 00:30; Stop 10/13/16 at 00:29; Status DC Sodium Chloride 1,000 ml @ 100 mls/hr 1X ONCE IV Last administered on 00:51; Start 10/12/16 at 01:00; Stop 10/12/16 at 10:59; Status DC Aspirin (Momo Aspirin) 81 mg DAILYWBKFT PO ; Start 10/12/16 at 13:00; Stop at 13:45; Status DC Acetaminophen (Tylenol) 650 mg PRN Q6HRS PRN PO FEVER; Start 10/12/16 at 12:45 Ondansetron HCl (Zofran) 4 mg PRN Q6HRS PRN IV NAUSEA/VOMITING; Start 10/12/16 at 12:45 Morphine Sulfate 2 mg PRN Q2HR PRN IV PAIN; Start 10/12/16 at 12:45 Tramadol HCl (Ultram) 50 mg PRN Q6HRS PRN PO PAIN Last administered on 09:50; Start 10/12/16 at 12:45 Hydralazine HCl (Apresoline) 10 mg PRN Q4HRS PRN IVP ELEVATED BP, SEE COMMENTS ; Start 10/12/16 at 12:45 Docusate Sodium (Colace) 100 mg PRN DAILY PRN PO CONSTIPATION; Start 10/12/16 at 12:45 Enoxaparin Sodium (Lovenox 40mg Syringe) 40 mg Q24H SQ Last administered on 14:23; Start 10/12/16 at 13:00 Aspirin (Children'S Aspirin) 81 mg DAILYWBKFT PO Last administered on 14:21; Start 10/12/16 at 14:00 Atorvastatin Calcium (Lipitor) 40 mg QHS PO ; Start 10/13/16 at 21:00 Active Scripts Active Atorvastatin Calcium 40 Mg Tablet 40 Mg PO QHS Aspirin 81 Mg Tab.chew 81 Mg PO DAILYWBKFT Vitals/I & O Vital Sign - Last 24 Hours 10/12/16 10/12/16 10/12/16 10/13/16 15:00 19:15 23:20 03:20 Temp 97.5 98.2 97.6 97.8 97.5 98.2 97.6 97.8 Pulse 67 68 65 66 Resp 18 18 18 18 B/P (MAP) 135/89 (104) 144/72 (96) 125/67 (86) 120/72 (88) Pulse Ox 99 98 100 99 O2 Delivery Room Air Room Air Room Air Room Air 10/13/16 10/13/16 10/13/16 10/13/16 07:10 09:50 10:52 11:09 Temp 97.7 97.6 97.7 97.6 Pulse 68 63 Resp 18 20 B/P (MAP) 142/80 (100) 99/58 (72) Pulse Ox 98 98 97 97 O2 Delivery Room Air Room Air Intake and Output 10/12/16 10/12/16 10/13/16 15:00 23:00 07:00 Intake Total 500 ml 800 ml Output Total 2 ml Balance 500 ml 798 ml Images I reviewed MRI brain, echocardiogram, carotid Dopplers, all normal BHANU BASS MD Oct 13, 2016 11:51
--- NOTE | 2016-10-13 13:01 | PDOC3 ---
Discharge Summary [facility] Date of Admission: Oct 12, 2016 Discharge Date: Oct 13, 2016 Admitting Diagnosis 1. left side numbness, 2/2 TIA vs. nonorganic reasons Problems: Final Diagnosis CONSULTS neuro Brief Hospital Course 51-year-old female presenting to the emergency department overnight with left facial numbness and left lower extremity weakness. pt is bermudian speaking, most history from ERP and nURses. Pt said the left facial and left leg numbness started on tuesday, with possible mild weakness, no speech or swallow problem, now all resolved at hosp. . head CT neg. MRI brain, echo, carotid US all neg. LDL, TG slightly high. dc home with asa, also lipitor which might not help tho. dc time 35min GEN.: No apparent distress. Alert and oriented. HEENT: Head is normocephalic, atraumatic NECK: Supple. LUNGS: Clear to auscultation. HEART: RRR, S1, S2 present. Peripheral pulses intact ABDOMEN: Soft, nontender. Positive bowel sounds. EXTREMITIES: Without any cyanosis. NEUROLOGIC: Normal speech, normal tone PSYCHIATRIC: Normal affect, normal mood. SKIN: No ulcerations Problems: Disposition home CONDITION AT DISCHARGE: Improved Diet regular Scheduled Aspirin (Aspirin), 81 MG PO DAILYWBKFT Atorvastatin Calcium (Atorvastatin Calcium), 40 MG PO QHS Discontinued Medications Info (No Known Medications Prior To Admisstion), 1 EACH , (Reported) Follow Up pcp in 2 weeks RUBEN TARIQ MD Oct 13, 2016 13:01
[2016-10-13] MEDS ORDERED: ATORVASTATIN CALCIUM 40 MG TABLET. PO SCH (21:00)
== END 2016-10-13 12:40 | disposition home or self-care (01) ==
LOC: ER 22:02 → 6 SOUTH 10-12 00:15
PROVIDERS: ADMIT Internal Medicine; ATTEND Internal Medicine
DX: R20.0 Anesthesia of skin (principal); E11.9 Type 2 diabetes mellitus without complications; Z82.49 Family history of ischemic heart disease and other diseases of the circulatory system
CPT/HCPCS: 36415; 70450; 70551; 80048; 80061; 80076; 81001; 82607; 82962; 83036; 85027; 85610; 85730; 92610; 93005; 93880; 96360; 96361; 96372; 97161; 97165; 99285; C8929; G0378; G0481; G8987; G8988; G8989; J1650; J7030; G0379

== ENCOUNTER 2017-02-26 11:43 | Emergency (ER) | payer SELFPAY ==
[~2017-02-26] VITALS: Ht 165.1 cm; Wt 112.5 kg
[~2017-02-26 11:43] MED LIST: ASPI-630 PO; ATOR40TA59 PO
[2017-02-26 11:45] VITALS: BP 164/90
--- NOTE | 2017-02-26 12:00 | PHYS DOC ---
Adult General Chief Complaint Chief Complaint: BACK PAIN OR INJURY [facility] HPI Patient is a 52 year old female presents to the ED complaining of back injury x 1 hour. 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 Landed on her left side. Complains of pain to left hip and lower back. Describes as sharp. Rates as 8/10. Denies radiating pain. Denies fever, head/ neck injury, LOC, vision changes, bowel/bladder changes or saddle anesthesia. Review of Systems Review of Systems Constitutional: Denies fever or chills [] Eyes: Denies change in visual acuity, redness, or eye pain [] HENT: Denies nasal congestion or sore throat [] Respiratory: Denies cough or shortness of breath [] Cardiovascular: No additional information not addressed in HPI [] GI: Denies abdominal pain, nausea, vomiting, bloody stools or diarrhea [] : Denies dysuria or hematuria [] Musculoskeletal: Complains of back and hip pain.[] Integument: Denies rash or skin lesions [] Neurologic: Denies headache, focal weakness or sensory changes [] Endocrine: Denies polyuria or polydipsia [] All other systems were reviewed and found to be within normal limits, except as documented in this note. Current Medications Current Medications Current Medications Medications (Trade) Dose Ordered Sig/Kai Start Time Stop Time Status Last Admin Dose Admin Acetaminophen/ Hydrocodone Bitart (Lortab 5/325) 1 tab 1X ONCE 02/26/17 12:15 02/26/17 12:16 DC 02/26/17 12:07 1 TAB Cyclobenzaprine HCl (Flexeril) 10 mg 1X ONCE 02/26/17 12:15 02/26/17 12:16 DC 02/26/17 12:07 10 MG Ibuprofen (Motrin) 800 mg 1X ONCE 02/26/17 12:15 02/26/17 12:16 DC 02/26/17 12:06 800 MG Allergies Allergies Allergies Coded Allergies Type Severity Reaction Last Updated Verified No Known Drug Allergies 02/26/17 No Physical Exam Physical Exam Constitutional: Well developed, well nourished, no acute distress, non-toxic appearance. [] HENT: Normocephalic, atraumatic, bilateral external ears normal, oropharynx moist, no oral exudates, nose normal. [] Eyes: PERRLA, EOMI, conjunctiva normal, no discharge. [] Neck: Normal range of motion, no tenderness, supple, no stridor. [] Cardiovascular:Heart rate regular rhythm, no murmur [] Lungs & Thorax: Bilateral breath sounds clear to auscultation [] Abdomen: Bowel sounds normal, soft, no tenderness, no masses, no pulsatile masses. [] Skin: Warm, dry, no erythema, no rash. [] Back: MILD LEFT LATERAL HIP TENDERNESS. NO MIDLINE TENDERNESS. NO OVERLYING SKIN CHANGES OR SWELLING., no CVA tenderness. [] Extremities: MILD LEFT LATERAL HIP TENDERNESS. no cyanosis, no clubbing, ROM intact, no edema. [] Neurologic: Alert and oriented X 3, normal motor function, normal sensory function, no focal deficits noted. [] Psychologic: Affect normal, judgement normal, mood normal. [] Current Patient Data Vital Signs Vital Signs Date Time Temp Pulse Resp B/P (MAP) Pulse Ox O2 Delivery O2 Flow Rate FiO2 02/26/17 11:45 97.6 90 20 100 Room Air 97.6 EKG EKG [] Radiology/Procedures Radiology/Procedures PROCEDURE: LUMBAR SPINE 2-3V EXAM: Lumbar spine, 3 views. HISTORY: Pain. COMPARISON: None. FINDINGS: Frontal, lateral and coned sacral views of the lumbar spine are obtained. There is no listhesis. The vertebral fuentes normal in height and the disc spaces are preserved. There is minimal endplate remodeling at multiple levels. There is a right a density overlying the left renal shadow, likely artifact due to overlying bowel. IMPRESSION: No acute osseous finding. []PROCEDURE: HIP LEFT 2V WITH PELVIS EXAM: Pelvis and left hip, 2 views. HISTORY: Pain. COMPARISON: None. FINDINGS: A frontal view of the pelvis and frog-leg view left hip are obtained. There is no fracture, dislocation or subluxation. IMPRESSION: No acute osseous finding. Course & Med Decision Making Course & Med Decision Making Pertinent Labs and Imaging studies reviewed. (See chart for details) []X-ray negative for acute injury. Patient's pain improved. Patient able to ambulate without assistance. No focal neural deficits. Discussed follow-up with orthopedics if pain continues. Provided contact information/education. Discussed reasons to return to the ED. Patient understands and agrees with plan. Family at bedside. Dragon Disclaimer Dragon Disclaimer This electronic medical record was generated, in whole or in part, using a voice recognition dictation system. Departure Departure Impression: Primary Impression: Hip injury Additional Impression: Back injury Disposition: 01 HOME, SELF-CARE Condition: IMPROVED Referrals: SASHA PEREZ II, MD Patient Instructions: Back Pain, Adult, Muscle Strain Scripts Cyclobenzaprine Hcl (CYCLOBENZAPRINE HCL) 5 Mg Tablet 5 MG PO TID, #14 TAB Prov: BAILEY SOOD 02/26/17 Hydrocodone/Apap 5-325 (NORCO 5-325 TABLET) 1 Each Tablet 1 TAB PO TID, #10 TAB Prov: BAILEY SOOD 02/26/17 Problem Qualifiers BAILEY SOOD Feb 26, 2017 11:59
[2017-02-26] MEDS ORDERED: CYCLOBENZAPRINE 10 MG TABLET. PO ONE (12:15)
[2017-02-26] MEDS ORDERED: IBUPROFEN 800 MG TABLET. PO ONE (12:15)
[2017-02-26] MEDS ORDERED: HYDROcodone/APAP 5/325MG 1 TAB TABLET PO ONE (12:15)
--- NOTE | 2017-02-26 12:29 | RAD ---
EXAM: Lumbar spine, 3 views. HISTORY: Pain. COMPARISON: None. FINDINGS: Frontal, lateral and coned sacral views of the lumbar spine are obtained. There is no listhesis. The vertebral fuentes normal in height and the disc spaces are preserved. There is minimal endplate remodeling at multiple levels. There is a right a density overlying the left renal shadow, likely artifact due to overlying bowel. IMPRESSION: No acute osseous finding.
--- NOTE | 2017-02-26 12:30 | RAD ---
EXAM: Pelvis and left hip, 2 views. HISTORY: Pain. COMPARISON: None. FINDINGS: A frontal view of the pelvis and frog-leg view left hip are obtained. There is no fracture, dislocation or subluxation. IMPRESSION: No acute osseous finding.
[2017-02-26] MEDS ORDERED: CYCL5TAB PO (12:38)
[2017-02-26] MEDS ORDERED: HYDR-971 PO (12:38)
== END 2017-02-26 12:45 | disposition home or self-care (01) ==
LOC: ER 11:43 → MERGE 11:43 → ER 12:45
DX: S79.912A Unspecified injury of left hip, initial encounter (principal); S39.92XA Unspecified injury of lower back, initial encounter; W01.0XXA Fall on same level from slipping, tripping and stumbling without subsequent striking against object, initial encounter; Y93.89 Activity, other specified; Y92.090 Kitchen in other non-institutional residence as the place of occurrence of the external cause; Y99.8 Other external cause status
CPT/HCPCS: 72100; 73502; 99284

== ENCOUNTER 2017-08-10 22:26 | Inpatient (IN) | payer SELFPAY ==
[2017-08-10 22:52] LABS: HEMATOCRIT 42.1 % (36.0-47.0); HEMOGLOBIN 14.7 g/dL (12.0-15.5); MEAN CORPUSCULAR HEMOGLOBIN 32 pg (25-35); MEAN CORPUSCULAR HGB CONC 35 g/dL (31-37); MEAN CORPUSCULAR VOLUME 92 fL (79-100); PLATELET COUNT 288 x10^3/uL (140-400); RED CELL DISTRIBUTION WIDTH 12.7 % (11.5-14.5); WHITE BLOOD COUNT 8.5 x10^3/uL (4.0-11.0)
[2017-08-10 23:01] LABS: ANION GAP 10 (6-14); BLOOD UREA NITROGEN 20 mg/dL (7-20); CALCIUM 9.2 mg/dL (8.5-10.1); CARBON DIOXIDE 28 mmol/L (21-32); CHLORIDE 100 mmol/L (98-107); CREATININE 0.9 mg/dL (0.6-1.0); GLUCOSE 356 mg/dL (70-99); POTASSIUM 3.9 mmol/L (3.5-5.1); SODIUM 138 mmol/L (136-145)
[2017-08-10 23:04] LABS: INR 0.9 (0.8-1.1); PARTIAL THROMBOPLASTIN TIME 27 SEC (24-38); PROTHROMBIN TIME PATIENT 12.1 SEC (11.7-14.0)
[2017-08-10 23:11] LABS: TROPONINI < 0.017 ng/mL (0.000-0.055)
[2017-08-11] MEDS: INSULIN REGULAR 100 UNIT/ML 3ML VIAL. IV
[2017-08-11] MEDS: IV NORMAL SALINE 1000ML BAG 1,000 ML IV ×3 (00:08→02:53)
[2017-08-11 00:12] LABS: POC GLUCOSE 319 mg/dL (70-99)
[2017-08-11 04:47] LABS: ADD MAN DIFF? NO
[2017-08-11 04:59] LABS: BASO % 0 % (0-3); EOS # 0.1 x10^3/uL (0.0-0.7); EOS % 1 % (0-3); HEMATOCRIT 38.4 % (36.0-47.0); HEMOGLOBIN 13.4 g/dL (12.0-15.5); LYMPH % 49 % (24-48); MEAN CORPUSCULAR HEMOGLOBIN 32 pg (25-35); MEAN CORPUSCULAR HGB CONC 35 g/dL (31-37); MEAN CORPUSCULAR VOLUME 91 fL (79-100); MONO # 0.6 x10^3/uL (0.0-1.1); MONO % 8 % (0-9); NEUT # 3.4 x10^3uL (1.8-7.7); NEUT % 42 % (31-73); PLATELET COUNT 248 x10^3/uL (140-400); RED CELL DISTRIBUTION WIDTH 12.9 % (11.5-14.5); WHITE BLOOD COUNT 8.2 x10^3/uL (4.0-11.0)
[2017-08-11 05:04] LABS: ANION GAP 9 (6-14); BLOOD UREA NITROGEN 18 mg/dL (7-20); CALCIUM 8.6 mg/dL (8.5-10.1); CARBON DIOXIDE 26 mmol/L (21-32); CHLORIDE 105 mmol/L (98-107); CREATININE 0.6 mg/dL (0.6-1.0); GFR 105.4; GLUCOSE 185 mg/dL (70-99); POTASSIUM 3.3 mmol/L (3.5-5.1); SODIUM 140 mmol/L (136-145)
[2017-08-11 05:25] LABS: TROPONINI < 0.017 ng/mL (0.000-0.055)
[2017-08-11 06:18] LABS: TROPONINI < 0.017 ng/mL (0.000-0.055)
[2017-08-11 11:26] LABS: VITAMIN-B12 1021 pg/mL (247-911)
[2017-08-11] MEDS: GADOBUTROL 10 MMOL/10 ML VIAL IV (11:43)
[2017-08-11 11:52] LABS: THYROID STIM HORMONE (TSH) 3.305 uIU/mL (0.358-3.74)
[2017-08-11] MEDS: ASPIRIN CHEWABLE 81 MG TABLET. PO (12:22)
[2017-08-11] MEDS: POTASSIUM CHLORIDE 20 MEQ TABLET.ER. PO (12:22)
[2017-08-11 13:16] LABS: CHOLESTEROL 205 mg/dL (0-200); HDLC 45 mg/dL (40-60); LDLC 133 mg/dL (0-100); NON-HDL CHOLESTEROL 160 mg/dL (0-129); TRIGLYCERIDES 137 mg/dL (0-150); VLDLC 27 mg/dL (0-40)
[2017-08-11 13:19] LABS: CHOLESTEROL/HDL RATIO 4.6
[2017-08-11] MEDS ORDERED: DOCUSATE SODIUM 100 MG CAPSULE. PO (15:00)
[2017-08-11] MEDS ORDERED: DEXTROSE 50% 25 GM / 50ML DISP.SYRIN. IV (15:00)
[2017-08-11] MEDS ORDERED: ACETAMINOPHEN 325 MG TABLET. PO (15:00)
[2017-08-11] MEDS ORDERED: MORPHINE SULFATE 4 MG/ML DISP.SYRIN. IV (15:00)
[2017-08-11] MEDS ORDERED: ONDANSETRON PF 4 MG/2 ML VIAL. IV ×2 (15:00)
[2017-08-11] MEDS ORDERED: hydrALAZINE 20 MG/ML VIAL. IVP (15:00)
[2017-08-11] MEDS: CHOLECALCIFEROL (VITAMIN D3) 1,000 UNIT TABLET PO (18:09)
[2017-08-11] MEDS: INSULIN LISPRO 300 UNITS/3 ML INSULN.PEN. SQ (18:20)
[2017-08-11 18:21] LABS: POC GLUCOSE 291 mg/dL (70-99)
[2017-08-11 20:32] LABS: POC GLUCOSE 258 mg/dL (70-99)
[2017-08-11] MEDS: ENOXAPARIN 40 MG/0.4 ML SYRINGE. SQ (20:46)
[2017-08-11] MEDS: ATORVASTATIN CALCIUM 20 MG TABLET PO (20:46)
[2017-08-12 07:54] LABS: POC GLUCOSE 241 mg/dL (70-99)
[2017-08-12 08:25] LABS: BARBITURATES NEG (NEG); BENZODIAZEPINES NEG (NEG); CANNABINOIDS NEG (NEG); COCAINE NEG (NEG); METHADONE NEG (NEG); OPIATES NEG (NEG); PHENCYCLIDINE NEG (NEG)
[2017-08-12 08:26] LABS: AMPHETAMINE/METHAMPHETAMINE NEG (NEG); ETHANOL, URINE NEG (NEG)
[2017-08-12] MEDS: CHOLECALCIFEROL (VITAMIN D3) 1,000 UNIT TABLET PO (08:52)
[2017-08-12] MEDS: ASPIRIN CHEWABLE 81 MG TABLET. PO (08:52)
[2017-08-12] MEDS: ENOXAPARIN 40 MG/0.4 ML SYRINGE. SQ (08:53)
[2017-08-12] MEDS: INSULIN LISPRO 300 UNITS/3 ML INSULN.PEN. SQ (08:58)
[2017-08-12] MEDS: traMADol 50 MG TABLET PO (09:00)
[2017-08-12 09:22] LABS: ADD MAN DIFF? NO
[2017-08-12 09:28] LABS: BASO % 0 % (0-3); EOS # 0.1 x10^3/uL (0.0-0.7); EOS % 1 % (0-3); HEMATOCRIT 40.7 % (36.0-47.0); HEMOGLOBIN 13.9 g/dL (12.0-15.5); LYMPH # 2.8 x10^3/uL (1.0-4.8); LYMPH % 42 % (24-48); MEAN CORPUSCULAR HEMOGLOBIN 31 pg (25-35); MEAN CORPUSCULAR HGB CONC 34 g/dL (31-37); MEAN CORPUSCULAR VOLUME 92 fL (79-100); MONO # 0.4 x10^3/uL (0.0-1.1); MONO % 6 % (0-9); NEUT # 3.4 x10^3uL (1.8-7.7); NEUT % 51 % (31-73); PLATELET COUNT 255 x10^3/uL (140-400); RED BLOOD COUNT 4.44 x10^6/uL (3.50-5.40); WHITE BLOOD COUNT 6.8 x10^3/uL (4.0-11.0)
[2017-08-12 09:44] LABS: ANION GAP 9 (6-14); BLOOD UREA NITROGEN 14 mg/dL (7-20); CALCIUM 9.1 mg/dL (8.5-10.1); CARBON DIOXIDE 27 mmol/L (21-32); CHLORIDE 101 mmol/L (98-107); CREATININE 0.9 mg/dL (0.6-1.0); GLUCOSE 321 mg/dL (70-99); POTASSIUM 4.2 mmol/L (3.5-5.1); SODIUM 137 mmol/L (136-145)
[2017-08-12 11:24] LABS: POC GLUCOSE 259 mg/dL (70-99)
[2017-08-12 15:32] LABS: HEMOGLOBIN A1C 11.3 % (4.8-5.6)
== END 2017-08-12 13:06 | disposition home or self-care (01) | DRG 638 ==
LOC: 6 SOUTH 23:47 → ER 22:26
DX: E11.65 Type 2 diabetes mellitus with hyperglycemia (principal); Z68.41 Body mass index [BMI] 40.0-44.9, adult; E66.01 Morbid (severe) obesity due to excess calories; F41.9 Anxiety disorder, unspecified; E87.6 Hypokalemia; E55.9 Vitamin D deficiency, unspecified; E78.00 Pure hypercholesterolemia, unspecified; E78.5 Hyperlipidemia, unspecified; G47.00 Insomnia, unspecified; I10 Essential (primary) hypertension; M19.90 Unspecified osteoarthritis, unspecified site; F32.9 Major depressive disorder, single episode, unspecified; Z79.84 Long term (current) use of oral hypoglycemic drugs; Z79.82 Long term (current) use of aspirin; Z82.49 Family history of ischemic heart disease and other diseases of the circulatory system
CPT/HCPCS: 36415; 70450; 70553; 71045; 80048; 80061; 80307; 82306; 82607; 82962; 83036; 84443; 84484; 85025; 85027; 85610; 85730; 92610-GN; 93005; 93306; A9585; J1650; J1815; J7030